=== PATIENT | male | born 1990 | race Caucasian/White ===

== ENCOUNTER 2025-06-02 09:32 | Emergency (ER) | payer MEDICAID, OTHER ==
[~2025-06-02] VITALS: Ht 172.7 cm; Wt 83.0 kg
[~2025-06-02 09:32] MED LIST: CYCL10TA21 PO; HYDR-4001 MT; TOPUD PO
[2025-06-02 09:42] VITALS: O2SAT 100
[2025-06-02 10:48] LABS: TROPONIN I HIGH SENSITIVITY 13 ng/L (3.0-53)
[2025-06-02] MEDS: KETOROLAC 15MG/ML VIAL IM SCH (10:56)
[2025-06-02 13:10] LABS: TROPONIN I HIGH SENSITIVITY 13 ng/L (3.0-53)
[2025-06-02 15:11] VITALS: BP 118/72; PULSE 67; RESP 16; TEMP 36.5; O2SAT 99
== END 2025-06-02 15:12 | disposition home or self-care (01) ==
LOC: ER 10:21 → CMPBEDREQ 16:16
DX: R07.89 Other chest pain (principal); Z88.0 Allergy status to penicillin
CPT/HCPCS: 80320; 85379; 84484; 36415; 71045; 93005; 96372; 99285; J1885; G0480